=== PATIENT | female | born 1960 | race Caucasian/White ===

== ENCOUNTER 2017-06-09 20:57 | Emergency (ER) | payer SELFPAY ==
[~2017-06-09] VITALS: Ht 152.4 cm; Wt 44.0 kg
[2017-06-09 21:23] VITALS: BP 176/82; PULSE 98; RESP 16; TEMP 98.3; O2SAT 98
== END 2017-06-09 22:43 | disposition left against medical advice (07) ==
LOC: NED 20:57
DX: Z03.89 Encounter for observation for other suspected diseases and conditions ruled out (principal)
CPT/HCPCS: 99281